=== PATIENT | female | born 1970 | race Caucasian/White ===

== ENCOUNTER → 2016-05-04 | Outpatient (CLI) | payer BC ==
[~2016-05-04] MED LIST: LEVO100T84 PO; [UNRECOGNIZED DRUG - OTHER]
[2016-05-05 21:15] LABS: CHLAMYDIA TRACH RNA*** NOT DETECTED (NOT DETECTED); GC (NEIS GONORRHOEAE)RNA** NOT DETECTED (NOT DETECTED)
== END | disposition home or self-care (01) ==
LOC: C.LABSPEC 11:48
PROVIDERS: ATTEND Obstetrics & Gynecology
DX: Z11.3 Encounter for screening for infections with a predominantly sexual mode of transmission (principal)

== ENCOUNTER → 2016-07-01 | Outpatient (CLI) | payer BC ==
--- NOTE | 2016-07-01 15:54 | MAMMOGRAPHY REPORT ---
BILATERAL DIGITAL DIAGNOSTIC MAMMOGRAM TOMOSYNTHESIS WITH CAD AND TARGETED BILATERAL ULTRASOUND: 06/14 CLINICAL HISTORY: Six-month follow-up of right breast masses. Due for routine mammography of the le ft breast. TECHNIQUE: Breast tomosynthesis in addition to standard 2D mammography was performed. Current study was also evaluated with a Computer Aided Detection (CAD) system. Bilateral CC and MLO 2-D and ana synthesis images were obtained. COMPARISON: Comparison is made to exams dated: 06/25/2015 ultrasound, 06/25/2015 mammogram, and 016 mammogram - [facility]. BREAST COMPOSITION: There are scattered areas of fibroglandular density in both breasts. FINDINGS: Round circumscribed 6 mm mass in the right upper outer quadrant is decreased in size comp ared to prior exams and consistent with a benign finding. Other circumscribed benign-appearing mass es seen within the right breast are stable mammographically. An oval circumscribed 6 mm mass is see n within the left lateral breast at approximately 3:00, best seen on the tomosynthesis images. The remainder of both breasts are stable compared to prior exams, without suspicious masses, calcificati ons, or areas of architectural distortion noted. Targeted ultrasound was performed of the area of the previously seen masses. In the right breast at 10:00, 6 cm from the nipple, there is a round circumscribed anechoic mass with multiple thin network intern al septations, measuring 6 x 4 x 6 mm. This is decreased in size compared to the June 2015 exam and is therefore considered benign and consistent with a cyst, previously measuring 10 x 8 x 4 mm. This corresponds with the decreasing mammographic mass. In the right breast at 10:00, 2 cm from the nip ple, again noted is an oval anechoic circumscribed cyst which measures 6 x 5 mm, unchanged compared to the June 2015 exam. In the right breast at 12:00, 2 cm from the nipple, there is an isoechoic cir cumscribed mass which measures 8 x 3 x 4 mm and is stable dating back to the June 2015 exam. In the right breast at 3:00, 2 cm from the nipple, there is another circumscribed isoechoic mass which galo ures 7 x 3 x 3 mm, and is stable compared to the June 2015 exam. Targeted ultrasound was performed o f the left breast in the region of the circumscribed mammographic mass. In the left breast at 3:00, 47 m from the nipple, there is an oval circumscribed anechoic mass with multiple thin internal sept ations, measuring 5 x 5 x 3 mm. This corresponds with the mammographic mass and appears similar to other cysts within the right breast and is probably benign and likely represents a complicated cyst. IMPRESSION: ACR-BI-RADS CATEGORY 3: PROBABLY BENIGN, TARGETED ULTRASOUND ACR-BI-RADS CATEGORY 3: NH OBABLY BENIGN Multiple circumscribed benign-appearing masses in the right breast are stable to decreased compared to the June 2015 exam and are probably benign and likely represent complicated cysts and/or fibroaden omas. A benign-appearing complicated cyst in the left breast at 3:00 appears similar to some of the right breast masses and is probably benign. Recommend bilateral diagnostic tomosynthesis mammogram s in 12 months and possible repeat ultrasound to confirm longer stability of the masses. The patient has been verbally notified of the results. Approximately 10% of breast cancers are not detected with mammography. A negative mammographic repor t should not delay biopsy if a clinically suggestive mass is present. Yoon Aburto M.D. ah/:07/01/2016 15:03:00 Yeast Stacker: Ibis MORTON(Teri)(Suman), [facility] letter sent: Follow Up Recommended 3 BI-RADS Code: ACR-BI-RADS Category 3: Probably Benign Ultrasound BI-RADS: ACR-BI-RADS Category 3: P robably Benign
== END | disposition home or self-care (01) ==
LOC: C.MAMM 11:17
PROVIDERS: ATTEND Surgery
DX: N63 Unspecified lump in breast (principal)

== ENCOUNTER 2017-01-27 20:27 | Emergency (ER) | payer BC ==
[~2017-01-27] VITALS: Ht 165.1 cm; Wt 73.5 kg
[2017-01-27 20:35] VITALS: TEMP 37; Ht 165.1 cm; Wt 73.5 kg
[2017-01-27] MEDS ORDERED: THY/120 PO (20:47)
--- NOTE | 2017-01-27 21:30 | EMERGENCY ROOM VISIT NOTE ---
History Report prepared by Nita: Soraya Mccarthy Under the Supervision of: Dr. Tommy Rice M.D. First contact with patient: 20:41 Chief Complaint: RESPIRATORY PROBLEMS Stated Complaint: SINUS/CHEST PRESSURE,CONGESTION History of Present Illness The patient is a 46 year old female who presents to the Emergency Room with complaints of persistent chest pain for one week [employer]. She reports that he chest pain has peaked in pain today [employer], which she describes as a dull and sharp ache. She currently rates her pain a 2/10 in severity. She notes fevers, dyspnea on exertion, chest pain, back pain, sick contacts, rhinorrhea, post nasal drip, non-productive cough, sinus congestion, sore throat, general myalgia , and bilateral leg tenderness. She went to urgent care today and was advised to come to the ED. She has a history of arthritis in her knees. She reports that her children have strep throat. She has not received the flu shot this year. She denies any pain with cough, pain with breathing, rashes, dysuria, blood in urine, hematochezia, melena, leg swelling, or recent travels. She has had chest pain before with a URI in the past. She notes masses in bilateral breasts, which is being monitored by her PCP. She notes history of spinal stenosis. She has a history of mitral valve prolapse. Source of History: patient Onset: one week [employer] Position: chest Symptom Intensity: 2/10 Quality: sharp, dull Timing: other (persistent) Associated Symptoms: + fevers, + sorethroat, + cough (non-productive cough) , + chest pain, + SOB (on exertion), + back pain, No melena, No hematochezia, No urinary symptoms (dysuria and blood in urine), No rash Note: She notes sick contact, rhinorrhea, post nasal drip, sinus congestion, general myalgia, and bilateral leg tenderness. She denies any pain with cough, pain with breathing, leg swelling, or recent travels. Review of Systems See HPI for pertinent positives & negatives. A total of 10 systems reviewed and were otherwise negative. Past Medical & Surgical Medical Problems: (1) mitral valve (2) Spinal stenosis Old medical records were reviewed. Nurse's notes were reviewed and I agree with. Family History No pertinent family history reported. Social History Smoking Status: Never Smoker Smokeless Tobacco Use: No Alcohol Use: none Drug Use: none Marital Status: Housing Status: lives with family, lives with significant other Occupation Status: employed Current/Historical Medications Scheduled Azithromycin (Zithromax), 250 MG PO DAILY Thyroid ([place] Thyroid), 120 MG PO DAILY Allergies Coded Allergies: Acetaminophen (Unverified Allergy, Intermediate, RASH, FACIAL & NECK IMFLAMATION, 08/18/12) Gluten (Verified Allergy, Unknown, GI SYMPTOMS, 01/27/17) Penicillins (Verified Allergy, Unknown, Rash, 01/27/17) Midazolam (Unverified Adverse Reaction, Unknown, DIFFICULTY WAKING UP FROM , 06/16/15) Physical Exam Vital Signs Date Time Temp Pulse Resp B/P (MAP) Pulse Ox O2 Delivery O2 Flow Rate FiO2 01/27/17 22:24 108 18 112/70 100 Room Air 01/27/17 21:42 99 Nasal Cannula 2.0 01/27/17 20:38 97 Room Air 01/27/17 20:35 37.0 114 18 131/85 97 Room Air Physical Exam General: Mildly-ill appearing middle-aged female in no acute distress. Non- toxic. Frequent dry cough. HEENT: Normal cephalic atraumatic. Pupils are equal round and reactive to light. Extraocular movements are intact. Mild irritation and swelling of nares from rhinorrhea. Oropharynx is pink with moist mucous membranes. No swelling of the mouth lips or tongue. Neck: Supple with a midline trachea. No meningeal signs or stiffness, no JVD or bruits. No Stridor. Chest: Clear to auscultation bilaterally. No wheezes or rhonchi. No increased work of breathing. Mildly reproducible tenderness to palpation of sternum. Left- sided chest wall tenderness to palpation. Heart: regular rate and rhythm. Abdomen: Soft nontender, nondistended without rebound guarding or rigidity. Extremities: No cyanosis clubbing or edema. No calf tenderness or assymetry Spine/Back. Non tender to palpation. No CVA tenderness Skin: Good turgor without rashes. Neurologic exam: Cranial nerves two through 12 are intact. Motor and sensation are intact and symmetrical throughout. Medical Decision & Procedures ER Provider Diagnostic Interpretation: Radiology results as stated below per my review and radiologist interpretation: CHEST ONE VIEW PORTABLE HISTORY: cough COMPARISON: None. FINDINGS: The lungs are clear. Cardiac silhouette is normal in size. No pleural effusions. No pneumothorax. IMPRESSION: No acute process. Electronically signed by: Taye Baez M.D. 01/27/2017 9:30 PM Dictated Date/Time: 01/27/2017 9:26 PM Laboratory Results 01/27/17 21:28 Red Blood Count 4.67, Mean Corpuscular Volume 85.9, Mean Corpuscular Hemoglobin 28.9, Mean Corpuscular Hemoglobin Concent 33.7, Mean Platelet Volume 10.3, Neutrophils (%) (Auto) 69.3, Lymphocytes (%) (Auto) 19.6, Monocytes (%) (Auto) 9.0, Eosinophils (%) (Auto) 1.7, Basophils (%) (Auto) 0.2, Neutrophils # (Auto) 5.55, Lymphocytes # (Auto) 1.57, Monocytes # (Auto) 0.72, Eosinophils # (Auto) 0.14, Basophils # (Auto) 0.02 01/27/17 21:28 Test 01/27/17 21:20 01/27/17 21:28 01/27/17 21:37 Urine Color YELLOW Urine Appearance CLEAR (CLEAR) Urine pH 6.0 (4.5-7.5) Urine Specific [place] 1.014 (1.000-1.030) Urine Protein NEG (NEG) Urine Glucose (UA) NEG (NEG) Urine Ketones NEG (NEG) Urine Occult Blood NEG (NEG) Urine Nitrite NEG (NEG) Urine Bilirubin NEG (NEG) Urine Urobilinogen NEG (NEG) Urine Leukocyte Esterase TRACE (NEG) Urine WBC (Auto) 1-5 /hpf (0-5) Urine RBC (Auto) 0-4 /hpf (0-4) Urine Hyaline Casts (Auto) 0 /lpf (0-5) Urine Epithelial Cells (Auto) 20-30 /lpf (0-5) Urine Bacteria (Auto) NEG (NEG) White Blood Count 8.02 K/uL (4.8-10.8) Red Blood Count 4.67 M/uL (4.2-5.4) Hemoglobin 13.5 g/dL (12.0-16.0) Hematocrit 40.1 % (37-47) Mean Corpuscular Volume 85.9 fL (80-100) Mean Corpuscular Hemoglobin 28.9 pg (25-34) Mean Corpuscular Hemoglobin Concent 33.7 g/dl (32-36) Platelet Count 175 K/uL (130-400) Mean Platelet Volume 10.3 fL (7.4-10.4) Neutrophils (%) (Auto) 69.3 % Lymphocytes (%) (Auto) 19.6 % Monocytes (%) (Auto) 9.0 % Eosinophils (%) (Auto) 1.7 % Basophils (%) (Auto) 0.2 % Neutrophils # (Auto) 5.55 K/uL (1.4-6.5) Lymphocytes # (Auto) 1.57 K/uL (1.2-3.4) Monocytes # (Auto) 0.72 K/uL (0.11-0.59) Eosinophils # (Auto) 0.14 K/uL (0-0.5) Basophils # (Auto) 0.02 K/uL (0-0.2) RDW Standard Deviation 41.8 fL (36.4-46.3) RDW Coefficient of Variation 13.4 % (11.5-14.5) Immature Granulocyte % (Auto) 0.2 % Immature Granulocyte # (Auto) 0.02 K/uL (0.00-0.02) Anion Gap 7.0 mmol/L (3-11) Est Creatinine Clear Calc Drug Dose 88.2 ml/min Estimated GFR () 102.5 Estimated GFR (Non- 88.4 BUN/Creatinine Ratio 9.9 (10-20) Calcium Level 8.8 mg/dl (8.5-10.1) Troponin I < 0.015 ng/ml (0-0.045) Chemistry Specimen Hemolysis Influenza Type A Antigen Neg for Influ A (NEG) Influenza Type B Antigen Neg for Influ B (NEG) Laboratory studies as stated above per my review. Medications Administered Medications (Trade) Dose Ordered Sig/Dasha Route Start Time Stop Time Status Last Admin Dose Admin Azithromycin (Zithromax Tab) 500 mg NOW ONCE PO 01/27/17 22:15 01/27/17 22:16 DC 01/27/17 22:53 500 MG ECG Indication: chest pain Rate (beats per minute): 106 Rhythm: sinus tachycardia Findings: no acute ischemic change, no ectopy ED Course 2113: Past medical records reviewed. The patient was evaluated in room C10, and a complete history and physical examination were performed. 2142: I reassessed the patient at this time. She is feeling better and resting comfortably. 2214: Ordered Zithromax 500 mg PO 2218: I reassessed the patient at this time. She is feeling better and resting comfortably. I discussed the results and treatment plan with the patient. I answered all pertaining questions that she had. She expressed understanding and verbalized agreement. The patient will be discharged home. Medical Decision Differentials include, but are not limited to; bronchitis, PNA, influenza, cardiac disease, and electrolyte or metabolic abnormality. This patient comes in as described above. She comes in complaining of cough and URI symptoms as well as body aches. She has some chest pain which she says she gets when she feels sick. She is has been exposed to a colleague at work who was sick with similar symptoms as well as her children who have strep. She has had a postnasal drip and a runny nose. She appears very congested on exam. Her lungs are clear she appears in no distress. Her chest pain is reproducible. EKG does not suggest acute coronary syndrome or arrhythmia . Chest x-ray is unremarkable and shows no pneumonia or pneumothorax or CHF. Her labs are unremarkable. She has no white count or fever to suggest infection influenza was negative. I think she has a bronchitis/sinusitis and may be more viral but with the fact this been going on for over week I will put her on antibiotics. She was given azithromycin by mouth as well as a prescription for azithromycin Z-Vic. She should rest and drink plenty of fluids. Return if: Worsening of symptoms, fever or chills, shortness of breath, any new problems or concerns. She is happy the plan and discharged to home. Medication Reconcilliation Current Medication List: was personally reviewed by me Blood Pressure Screening Patient's blood pressure: Elevated blood pressure Blood pressure disposition: Elevated BP felt to be situational, Referred to PCP Impression Primary Impression: Bronchitis Additional Impressions: Sinusitis Left sided chest pain Scribe Attestation The scribe's documentation has been prepared under my direction and personally reviewed by me in its entirety. I confirm that the note above accurately reflects all work, treatment, procedures, and medical decision making performed by me. Departure Information Dispostion Home / Self-Care Prescriptions Azithromycin (Zithromax) 250 Mg Tab 250 MG PO DAILY, #4 TAB Prov: Dioni Sanchez M.D. 01/27/17 Referrals Rio Carbajal M.D. (PCP) Forms HOME CARE DOCUMENTATION FORM, IMPORTANT VISIT INFORMATION, WORK / SCHOOL INSTRUCTIONS Patient Instructions My [facility] Additional Instructions Ms. Paredes, you came into the ED today with flu-like symptoms. Your chest x ray was not concerning for pneumonia. We are treating you for a bacterial sinusitis and bronchitis with Azithromycin. Azithromycin(Zithromax) 250mg: Take one a day for 4 additional days. All antibiotics can cause diarrhea. If this occurs and you feel worse or it does not resolve in 1-2 days follow up with your doctor or return to the Emergency Department as this could be signs of serious underlying problems. Any medication can cause an allergic reaction, stop the pills immediately and return to the ER for rash, hives, breathing difficulties, or swelling. Read all the package inserts or medication information paperwork provided. If you have any questions or concerns call your primary provider, pharmacist or the ER for assistance. Rest and drink plenty of fluids. Controlling your fever with Tylenol and Ibuprofen as above will make you feel better. Wash your hands after nose blowing, sneezing, or coughing. Most germs are spread through contact, therefore improper hygiene may result in your close contacts and loved ones becoming ill just like you. Continue current medications. Return to the ER for severe headache, neck stiffness, chest pain, difficulty breathing, fevers, vomiting, worsening of your condition, or as needed. Follow up with your primary physician this week for a recheck of your current condition Problem Qualifiers
[2017-01-27 21:42] VITALS: O2SAT 99
--- NOTE | 2017-01-27 21:45 | EMERGENCY ROOM VISIT NOTE ---
History First contact with patient: 20:41 Chief Complaint: RESPIRATORY PROBLEMS Stated Complaint: SINUS/CHEST PRESSURE,CONGESTION History of Present Illness The patient is a 46 year old female who presents to the Emergency Room with complaints of flu-like symptoms Patient says that the flu-like symptoms have progressively gotten worse over the past week. Patient sx include; congestion, non-productive cough and subjective fevers. She also endorses SOB, JOEL, left-sided chest pain and diffused myalgias. Patient denies recent immobility, history of clots or family history of blood clot. Patient describes the chest pain as constant, positional and related to inspiration. 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 Review of Systems see below Constitutional: + fever, + chills, + sweats ENT: + nasal symptoms, + sore throat Respiratory: + cough, + sputum, + shortness of breath, + dyspnea on exertion Cardiovascular: + chest pain, No orthopnea, No edema, No palpitations Abdomen: No pain, No nausea, No vomiting, No diarrhea Genitourinary - Female: No dysuria, No urinary frequency Past Medical/Surgical History Medical Problems: (1) mitral valve (2) Spinal stenosis Social History Smoking Status: Never Smoker Current/Historical Medications Scheduled Azithromycin (Zithromax), 250 MG PO DAILY Thyroid ([place] Thyroid), 120 MG PO DAILY Physical Exam Vital Signs Date Time Temp Pulse Resp B/P (MAP) Pulse Ox O2 Delivery O2 Flow Rate FiO2 01/27/17 22:24 108 18 112/70 100 Room Air 01/27/17 21:42 99 Nasal Cannula 2.0 01/27/17 20:38 97 Room Air 01/27/17 20:35 37.0 114 18 131/85 97 Room Air Physical Exam see below General Appearance: WD/WN, no apparent distress Head: normocephalic, atraumatic Eyes: + pertinent finding (red watery eyes ) ENT: + pertinent finding (non-erythematous, non-exudative posterior pharynx) Neck: supple, no adenopathy, thyroid normal Respiratory/Chest: lungs clear, normal breath sounds, no respiratory distress, no accessory muscle use, + pertinent finding (left chest wall tenderness with palpation ) Cardiovascular: regular rate, rhythm, no edema, no gallop Abdomen / GI: normal bowel sounds, non tender, soft, no organomegaly Back: + left CVA tenderness Extremities: no calf tenderness, no pedal edema Neurologic/Psych: alert, normal mood/affect, normal reflexes Medical Decision & Procedures ER Provider Diagnostic Interpretation: [~ rep ct add3]] CHEST ONE VIEW PORTABLE HISTORY: cough COMPARISON: None. FINDINGS: The lungs are clear. Cardiac silhouette is normal in size. No pleural effusions. No pneumothorax. IMPRESSION: No acute process. Electronically signed by: Taye Baez M.D. 01/27/2017 9:30 PM Dictated Date/Time: 01/27/2017 9:26 PM Laboratory Results 01/27/17 21:28 Red Blood Count 4.67, Mean Corpuscular Volume 85.9, Mean Corpuscular Hemoglobin 28.9, Mean Corpuscular Hemoglobin Concent 33.7, Mean Platelet Volume 10.3, Neutrophils (%) (Auto) 69.3, Lymphocytes (%) (Auto) 19.6, Monocytes (%) (Auto) 9.0, Eosinophils (%) (Auto) 1.7, Basophils (%) (Auto) 0.2, Neutrophils # (Auto) 5.55, Lymphocytes # (Auto) 1.57, Monocytes # (Auto) 0.72, Eosinophils # (Auto) 0.14, Basophils # (Auto) 0.02 01/27/17 21:28 Test 01/27/17 21:20 01/27/17 21:28 01/27/17 21:37 Urine Color YELLOW Urine Appearance CLEAR (CLEAR) Urine pH 6.0 (4.5-7.5) Urine Specific [place] 1.014 (1.000-1.030) Urine Protein NEG (NEG) Urine Glucose (UA) NEG (NEG) Urine Ketones NEG (NEG) Urine Occult Blood NEG (NEG) Urine Nitrite NEG (NEG) Urine Bilirubin NEG (NEG) Urine Urobilinogen NEG (NEG) Urine Leukocyte Esterase TRACE (NEG) Urine WBC (Auto) 1-5 /hpf (0-5) Urine RBC (Auto) 0-4 /hpf (0-4) Urine Hyaline Casts (Auto) 0 /lpf (0-5) Urine Epithelial Cells (Auto) 20-30 /lpf (0-5) Urine Bacteria (Auto) NEG (NEG) White Blood Count 8.02 K/uL (4.8-10.8) Red Blood Count 4.67 M/uL (4.2-5.4) Hemoglobin 13.5 g/dL (12.0-16.0) Hematocrit 40.1 % (37-47) Mean Corpuscular Volume 85.9 fL (80-100) Mean Corpuscular Hemoglobin 28.9 pg (25-34) Mean Corpuscular Hemoglobin Concent 33.7 g/dl (32-36) Platelet Count 175 K/uL (130-400) Mean Platelet Volume 10.3 fL (7.4-10.4) Neutrophils (%) (Auto) 69.3 % Lymphocytes (%) (Auto) 19.6 % Monocytes (%) (Auto) 9.0 % Eosinophils (%) (Auto) 1.7 % Basophils (%) (Auto) 0.2 % Neutrophils # (Auto) 5.55 K/uL (1.4-6.5) Lymphocytes # (Auto) 1.57 K/uL (1.2-3.4) Monocytes # (Auto) 0.72 K/uL (0.11-0.59) Eosinophils # (Auto) 0.14 K/uL (0-0.5) Basophils # (Auto) 0.02 K/uL (0-0.2) RDW Standard Deviation 41.8 fL (36.4-46.3) RDW Coefficient of Variation 13.4 % (11.5-14.5) Immature Granulocyte % (Auto) 0.2 % Immature Granulocyte # (Auto) 0.02 K/uL (0.00-0.02) Anion Gap 7.0 mmol/L (3-11) Est Creatinine Clear Calc Drug Dose 88.2 ml/min Estimated GFR () 102.5 Estimated GFR (Non- 88.4 BUN/Creatinine Ratio 9.9 (10-20) Calcium Level 8.8 mg/dl (8.5-10.1) Troponin I < 0.015 ng/ml (0-0.045) Chemistry Specimen Hemolysis Influenza Type A Antigen Neg for Influ A (NEG) Influenza Type B Antigen Neg for Influ B (NEG) ECG Rate (beats per minute): 106 Rhythm: sinus tachycardia Findings: no ectopy ED Course 2100 History and physical performed 2114 Ordered the following test; CXR, flu swab 2129 Reaccessed the patient Medical Decision 46 F comes into the ED with flu-like symptoms Considered the following differential; influenza, viral URI, PNA, PE, ACS The patient is experiencing a viral syndrome; runny nose, fevers, non- productive cough. CXR was unremarkable for cardiopulmonary pathology. While the symptoms are consistent with a viral URI, the patient has had the symptoms for greater than one week and has significant sick contact. With that said, decided to treat the patient with Azithromycin for possible bacterial sinusitis. Additionally, the patient is low probability for PE based on [facility]. Patient did endorse dyspnea on exertion and left side pleuritic-like chest pain. These symptoms are more specific for viral URI given the context of the rest of symptoms. Patient's EKG showed tachycardia without acute ST changes. Troponin was negative. Patients chest pain is unlikely due to ACS. Impression Primary Impression: Bronchitis Departure Information Dispostion Home / Self-Care Condition GOOD Prescriptions Azithromycin (Zithromax) 250 Mg Tab 250 MG PO DAILY, #4 TAB Prov: Dioni Sanchez M.D. 01/27/17 Referrals Rio Carbajal M.D. (PCP) Forms HOME CARE DOCUMENTATION FORM, IMPORTANT VISIT INFORMATION, WORK / SCHOOL INSTRUCTIONS Patient Instructions My [facility] Additional Instructions MsPrakash Stager, you came into the ED today with flu-like symptoms. Your chest x ray was not concerning for pneumonia. We are treating you for a bacterial sinusitis and bronchitis with Azithromycin. Azithromycin(Zithromax) 250mg: Take one a day for 4 additional days. All antibiotics can cause diarrhea. If this occurs and you feel worse or it does not resolve in 1- 2 days follow up with your doctor or return to the Emergency Department as this could be signs of serious underlying problems. Any medication can cause an allergic reaction, stop the pills immediately and return to the ER for rash, hives, breathing difficulties, or swelling. Read all the package inserts or medication information paperwork provided. If you have any questions or concerns call your primary provider, pharmacist or the ER for assistance. Rest and drink plenty of fluids. Controlling your fever with Tylenol and Ibuprofen as above will make you feel better. Wash your hands after nose blowing, sneezing, or coughing. Most germs are spread through contact, therefore improper hygiene may result in your close contacts and loved ones becoming ill just like you. Continue current medications. Return to the ER for severe headache, neck stiffness, chest pain, difficulty breathing, fevers, vomiting, worsening of your condition, or as needed. Follow up with your primary physician this week for a recheck of your current condition
[2017-01-27 22:03] LABS: URINE APPEARANCE CLEAR (CLEAR); URINE BILIRUBIN NEG (NEG); URINE COLOR YELLOW; URINE EPITHELIAL CELL AUTO 20-30 /lpf (0-5); URINE NITRITE NEG (NEG); URINE SPECIFIC GRAVITY 1.014 (1.000-1.030); UROBILINOGEN NEG (NEG); ZZUR CULT IF INDIC CLEAN CATCH NO
[2017-01-27 22:03] LABS: BLOOD UREA NITROGEN 8 mg/dl (7-18); BUN/CREATININE RATIO 9.9 (10-20); CALCIUM 8.8 mg/dl (8.5-10.1); CARBON DIOXIDE 27 mmol/L (21-32); CHLORIDE 104 mmol/L (98-107); GLUCOSE 125 mg/dl (70-99); POTASSIUM 3.7 mmol/L (3.5-5.1); SODIUM 138 mmol/L (136-145)
[2017-01-27 22:04] LABS: MANUAL MICROSCOPIC REQUIRED? NO; REVIEW REQ? NO
[2017-01-27] MEDS ORDERED: AZITHROMYCIN 250 MG TAB PO ONE (22:15)
[2017-01-27] MEDS ORDERED: AZIT250T PO (22:21)
[2017-01-27 22:24] VITALS: BP 112/70; PULSE 108; O2SAT 100
[2017-01-27 22:24] LABS: BASO % 0.2 %; BASO ABS # 0.02 K/uL (0-0.2); COMPLETE YES; EOS % 1.7 %; HEMATOCRIT 40.1 % (37-47); IG% 0.2 %; LYMPH % 19.6 %; LYMPH ABS # 1.57 K/uL (1.2-3.4); MEAN CELL VOLUME 85.9 fL (80-100); MEAN CORPUSCULAR HEMOGLOBIN 28.9 pg (25-34); MEAN CORPUSCULAR HGB CONC 33.7 g/dl (32-36); MEAN PLATELET VOLUME 10.3 fL (7.4-10.4); NEUT % 69.3 %; PLATELET COUNT 175 K/uL (130-400); RED BLOOD COUNT 4.67 M/uL (4.2-5.4); WHITE BLOOD COUNT 8.02 K/uL (4.8-10.8)
== END 2017-01-27 22:50 | disposition home or self-care (01) ==
LOC: C.EDB 20:31 → C.EDC 22:50
DX: J40 Bronchitis, not specified as acute or chronic (principal); J32.9 Chronic sinusitis, unspecified; R07.9 Chest pain, unspecified; I34.1 Nonrheumatic mitral (valve) prolapse

== ENCOUNTER → 2017-02-03 | Outpatient (CLI) | payer BC ==
[~2017-02-03] MED LIST changes: +AZIT250T PO; -LEVO100T84 PO; +THY/120 PO; -[UNRECOGNIZED DRUG - OTHER]
[2017-02-08 07:05] LABS: CHLAMYDIA TRACH RNA*** NOT DETECTED (NOT DETECTED); GC (NEIS GONORRHOEAE)RNA** NOT DETECTED (NOT DETECTED)
== END | disposition home or self-care (01) ==
LOC: C.LABSPEC 13:26
PROVIDERS: ATTEND Obstetrics & Gynecology
DX: Z11.3 Encounter for screening for infections with a predominantly sexual mode of transmission (principal)

== ENCOUNTER → 2017-05-20 | Outpatient (CLI) | payer OTHER, BC ==
--- NOTE | 2017-05-20 15:38 | MAMMOGRAPHY REPORT ---
BILATERAL DIGITAL DIAGNOSTIC MAMMOGRAM TOMOSYNTHESIS WITH CAD AND TARGETED BILATERAL ULTRASOUND: 2017 CLINICAL HISTORY: Short interval follow-up bilateral breast masses. TECHNIQUE: Breast tomosynthesis in addition to standard 2D mammography was performed. Current study was also evaluated with a Computer Aided Detection (CAD) system. Bilateral CC and MLO 2D and tomosyn thesis images were obtained. COMPARISON: Comparison is made to exams dated: 07/01/2016 ultrasound, 07/01/2016 mammogram, 06/25/2015 ultrasound, 06/25/2015 mammogram, and 06/18/2015 mammogram - [facility]. BREAST COMPOSITION: There are scattered areas of fibroglandular density in both breasts. FINDINGS: Previously seen masses within the right breast are decreased in size compared to the prior exam. A lobulated 7 mm mass within the right lateral posterior breast previously measured 8 mm, now measuring 6 mm. The previously seen low-density circumscribed 7 mm mass within the left 3:00 breast is not significantly changed. There are no new masses within either breast. There are no suspicious calcifications or areas of architectural distortion. Targeted ultrasound was performed of the previously seen bilateral breast masses. In the right breas t at 12:00, 2 cm from the nipple, there is an isoechoic circumscribed 9 x 3 x 4 mm mass which is stab le dating back to the June 2015 exam and is considered benign given the stability and morphology. In the right 3:00 breast, 2 cm from the nipple, there is an isoechoic circumscribed mass which measures 8 x 4 x 2 mm, also unchanged dating back to the June 2015 exam and considered benign. In the right br east at 10:00, 2 cm from the nipple, there is an anechoic cystic circumscribed mass with a few thin i nternal septations measuring 4 x 6 x 2 mm; this is not significantly changed compared to the July 03 exam and is considered benign and likely represents a cyst cluster. In the left breast at 3:00, 2 cm from the nipple, again noted is a circumscribed 5 x 6 mm mass which is predominantly anechoic and contains multiple thin internal septations. This is stable compared to the June 2016 exam and is nando ign and compatible with a cyst cluster. Overall, findings are stable and are considered benign. IMPRESSION: ACR BI-RADS CATEGORY 2: BENIGN, TARGETED ULTRASOUND ACR BI-RADS CATEGORY 2: BENIGN Small bilateral benign-appearing breast masses are stable to decreased compared to prior exams and ar e considered benign. There is no mammographic or targeted sonographic evidence of malignancy. A 1 ye ar screening mammogram is recommended. The patient has been verbally notified of the results. Approximately 10% of breast cancers are not detected with mammography. A negative mammographic report should not delay biopsy if a clinically suggestive mass is present. Yoon Aburto M.D. ah/:05/20/2017 10:47:18 Pediatric Immunologist: Dariela MORTON(Teri)(Suman), [facility] letter sent: Normal 1/2 BI-RADS Code: ACR BI-RADS Category 2: Benign Ultrasound BI-RADS: ACR BI-RADS Category 2: Benign
== END | disposition home or self-care (01) ==
LOC: C.MAMM 08:24
PROVIDERS: ATTEND Obstetrics & Gynecology
DX: Z09 Encounter for follow-up examination after completed treatment for conditions other than malignant neoplasm (principal); N63.0 Unspecified lump in unspecified breast